=== PATIENT | female | born 1950 | race Caucasian/White ===

== ENCOUNTER 2018-02-11 12:39 | Outpatient (CLI) | payer MEDICARE, OTHER | END 2018-02-11 12:40 | disposition home or self-care (01) | LOC: BICRAD 12:39 | PROVIDERS: ATTEND Physician Assistant | DX: J40 Bronchitis, not specified as acute or chronic (principal) | CPT/HCPCS: 71046 ==

== ENCOUNTER 2019-11-13 09:32 | Outpatient (CLI) | payer MEDICARE ==
--- NOTE | 2019-11-13 09:45 | RAD ---
AP PELVIS: Date: 11/13/19 INDICATION: Right hip pain. FINDINGS: There are degenerative changes at both hips. Spurring from femoral heads and acetabula seen bilateral ly, indicating mild to moderate symmetric degenerative changes. Pelvis intact with no acute osseous a bnormality identified. IMPRESSION: Mild to moderate symmetric degenerative changes at both hips. POS: CHAUNCEY
--- NOTE | 2019-11-13 09:46 | RAD ---
RIGHT HIP 2 VIEWS: Date: 11/13/19 HISTORY: Hip pain. FINDINGS: There are moderate degenerative changes noted. Spurring from the femoral head. Joint narrowing and sp urring from the acetabulum. No fracture or acute abnormality. IMPRESSION: Mild to moderate degenerative changes right hip. POS: PELON
== END 2019-11-13 09:33 | disposition home or self-care (01) ==
LOC: BICRAD 09:32
PROVIDERS: ATTEND Physician Assistant
DX: M25.551 Pain in right hip (principal); M16.0 Bilateral primary osteoarthritis of hip
CPT/HCPCS: 72170

== ENCOUNTER 2020-06-11 09:36 | Outpatient (CLI) | payer MEDICARE ==
--- NOTE | 2020-06-11 12:00 | MRI ---
MRI LUMBAR SPINE WITHOUT CONTRAST: Date: 06/11/2020 HISTORY: Lumbago with sciatica, right-sided chronic low back pain radiating down to the right hip and leg. FINDINGS: The vertebral body heights and marrow signal are maintained. The conus medullaris ends at L2 level. D isc desiccation is seen, most prominent at L4-5 level. There is Grade I anterolisthesis of L4 over L5 . Bilateral facet hypertrophic changes are most prominent at L4-5 and L5-S1 levels. No focal disc her niation is seen. There is a broad based disc bulge at L4-5 level with focal disc bulge in the right n eural foramen causing impingement of the exiting nerve root. No significant central canal stenosis is seen. The left-sided facet hypertrophic change at L4-5 causes impingement of the adjacent thecal sac . Incidental note is made of a small right renal cyst. The paraspinal musculature is unremarkable. IMPRESSION: 1. Grade I anterolisthesis of L4 over L5. 2. Right-sided neural foraminal stenosis at L4-5 with impingement of the exiting nerve root by a foc al disc bulge. POS: HEATH
== END 2020-06-11 09:37 | disposition home or self-care (01) ==
LOC: SCSMRI 09:36
PROVIDERS: ATTEND Physician Assistant
DX: M54.41 Lumbago with sciatica, right side (principal); G89.29 Other chronic pain; M43.16 Spondylolisthesis, lumbar region; M48.061 Spinal stenosis, lumbar region without neurogenic claudication; M25.80 Other specified joint disorders, unspecified joint
CPT/HCPCS: 72148

== ENCOUNTER 2020-09-07 11:06 | Outpatient (CLI) | payer MEDICARE ==
--- NOTE | 2020-09-07 12:19 | RAD ---
RIGHT KNEE RADIOGRAPHS 3 VIEWS: DATE: 09/07/2020. PROVIDED CLINICAL HISTORY: Pain. FINDINGS: No comparisons. Osteophyte formation is seen about the knee. Alignment appears anatomic. Joint spa mahsa appear preserved. Multiple intraarticular bodies are demonstrated. No significant knee joint ca psular distention apparent. IMPRESSION: Degenerative arthrosis of the right knee with multiple intraarticular bodies. POS: AH
== END 2020-09-07 11:07 | disposition home or self-care (01) ==
LOC: BICRAD 11:06
PROVIDERS: ATTEND Physician Assistant
DX: M17.11 Unilateral primary osteoarthritis, right knee (principal); M25.561 Pain in right knee; M25.861 Other specified joint disorders, right knee